=== PATIENT | male | born 2000 | race Hispanic/Latino ===

== ENCOUNTER 2022-07-23 08:33 | Outpatient (CLI) | payer BC | END 2022-07-23 08:34 | disposition home or self-care (01) | LOC: TBSIIMAG 08:33 | PROVIDERS: ATTEND Orthopaedic Surgery | DX: M23.92 Unspecified internal derangement of left knee (principal); S83.512A Sprain of anterior cruciate ligament of left knee, initial encounter; R60.0 Localized edema; S83.412A Sprain of medial collateral ligament of left knee, initial encounter; S83.422A Sprain of lateral collateral ligament of left knee, initial encounter; S80.02XA Contusion of left knee, initial encounter; M25.462 Effusion, left knee ==

== ENCOUNTER 2022-08-19 07:10 | Observation (INO) | payer BC ==
[2022-08-19] MEDS ORDERED: Midazolam HCl 2 mg/2 ml Vial ONE (07:52)
[2022-08-19] MEDS ORDERED: Ropivacaine 0.5% HCl/PF (150 MG/30 ML VIAL) ONE (07:52)
[2022-08-19] MEDS ORDERED: Fentanyl 100 MCG/2 ML VIAL ONE (07:52)
[2022-08-19] MEDS ORDERED: Fentanyl 100 MCG/2 ML VIAL IV PRN (08:17)
[2022-08-19] MEDS ORDERED: HYDROcodone/Acetaminophen 10/325 mg Tablet PO PRN ×2 (08:30)
[2022-08-19] MEDS ORDERED: Ropivacaine 0.2% 550 ML 550 ML NERVE BLCK SCH (08:30)
[2022-08-19] MEDS ORDERED: Ondansetron PF 4 MG/2 ML Vial IVP PRN (08:30)
[2022-08-19] MEDS ORDERED: Promethazine HCl 25 MG/ML VIAL IM PRN (08:30)
[2022-08-19] MEDS ORDERED: Zolpidem Tartrate 5 MG TAB PO PRN (08:30)
[2022-08-19] MEDS ORDERED: traMADol HCl 50 MG TAB PO PRN ×2 (08:30)
[2022-08-19 08:31] LABS: SARS-CoV-2 NAA Rapid Test Not Detected (NotDetected)
[2022-08-19] MEDS ORDERED: fentaNYL PF 100 MCG/2 ML SYRINGE ONE (09:24)
[2022-08-19] MEDS ORDERED: CEFAZOLIN 2 GM VIAL ONE (09:31)
[2022-08-19] MEDS ORDERED: Sodium Chloride 0.9% 100 ML ONE (09:31)
[2022-08-19] MEDS ORDERED: Dexamethasone 20 MG/5 ML VIAL ONE (09:40)
[2022-08-19] MEDS ORDERED: PROPOFOL 200 MG/20 ML VIAL ONE (09:40)
[2022-08-19] MEDS ORDERED: Ondansetron PF 4 MG/2 ML Vial ONE (09:40)
[2022-08-19] MEDS ORDERED: Ketorolac Tromethamine 30 MG/ML VIAL ONE (09:40)
[2022-08-19] MEDS ORDERED: Acetaminophen 500 MG TAB PO PRN (09:45)
[2022-08-19] MEDS ORDERED: Milk Of Magnesia 30 ML UDCUP PO PRN (09:45)
[2022-08-19] MEDS ORDERED: Bisacodyl 10 MG SUPP PR PRN (09:45)
[2022-08-19] MEDS ORDERED: HYDROcodone/Acetaminophen 7.5/325 mg Tablet PO PRN ×2 (09:45)
[2022-08-19] MEDS ORDERED: Methocarbamol 500 MG TAB PO PRN (09:45)
[2022-08-19] MEDS ORDERED: diphenhydrAMINE 50 MG CAP PO PRN (09:45)
[2022-08-19 17:18] VITALS: BMI 27.3
[2022-08-19] MEDS: Ketorolac Tromethamine 30 MG/ML VIAL IVP SCH ×3 (17:29→23:28)
[2022-08-19] MEDS: Dextrose 5 %-0.45 % NaCl 1,000 ML IV SCH ×2 (17:29→21:47)
[2022-08-19] MEDS: CEFAZOLIN 2 GM in Sodium Chloride 0.9% 100 ML IVPB SCH (17:51)
[2022-08-19] MEDS: Famotidine 20 MG TAB PO SCH (21:47)
[2022-08-20] MEDS: CEFAZOLIN 2 GM in Sodium Chloride 0.9% 100 ML IVPB SCH (02:44)
[2022-08-20] MEDS: Dextrose 5 %-0.45 % NaCl 1,000 ML IV SCH (05:01)
[2022-08-20] MEDS: Ketorolac Tromethamine 30 MG/ML VIAL IVP SCH ×2 (05:31→11:13)
[2022-08-20 08:36] VITALS: TEMP 97.6
[2022-08-20] MEDS: Famotidine 20 MG TAB PO SCH (11:13)
[2022-08-20 11:51] VITALS: BP 121/71
== END 2022-08-20 12:45 | disposition home or self-care (01) ==
LOC: SDC 07:10 → SURG A 09:45
PROVIDERS: ADMIT Orthopaedic Surgery; ATTEND Orthopaedic Surgery
PROC: 0MQP4ZZ Repair Left Knee Bursa and Ligament, Percutaneous Endoscopic Approach (ICD-10-PCS; principal; 2022-08-19)
DX: S83.512A Sprain of anterior cruciate ligament of left knee, initial encounter (principal); S83.412A Sprain of medial collateral ligament of left knee, initial encounter; Z86.16 Personal history of COVID-19; Z20.822 Contact with and (suspected) exposure to COVID-19; Y93.23 Activity, snow (alpine) (downhill) skiing, snowboarding, sledding, tobogganing and snow tubing
CPT/HCPCS: 96374; 96375; 96376; A4306; C1713; G0378; J1100; J1885; J2250; J2405; J2704; J2795; J3010; J3490; U0002